=== PATIENT | male | born 1980 | race Caucasian/White ===

== ENCOUNTER 2016-12-30 08:48 | Emergency (ER) | payer SELFPAY ==
--- NOTE | 2017-01-03 16:20 | ER ---
ADMIT: 12/30/2016 RM/LOC: ER [facility] MR#: [id number] [place], [place] [id number] ABDIRASHID PEREIRA [address] [place] [address] Emergency Room Report SEX: M AGE: 36 : 1980 DATE: 12/30/2016 ADDENDUM: CHIEF COMPLAINT: Laceration to finger. HISTORY OF PRESENT ILLNESS: This is a 36-year-old, who was trying to fix a window and he cut his finger on the glass. Suture repair was done, please see T-sheet for that information. CLINICAL IMPRESSION: Laceration to the right 5th finger. JESUS Covington / Bhupinder Canales MD / javadl JOB #: [id number] CC: Bhupinder Canales MD, Attending Physician Yordy Claire MD, Family Physician
== END 2016-12-30 09:40 | disposition home or self-care (01) ==
LOC: ER 08:48
PROC: 0HQFXZZ Repair Right Hand Skin, External Approach (ICD-10-PCS; principal; 2016-12-30)
DX: S61.216A Laceration without foreign body of right little finger without damage to nail, initial encounter (principal); W25.XXXA Contact with sharp glass, initial encounter; Y92.009 Unspecified place in unspecified non-institutional (private) residence as the place of occurrence of the external cause